=== PATIENT | female | born 1955 | race Caucasian/White ===

== ENCOUNTER → 2016-05-16 | Outpatient (CLI) | payer BC | END | disposition home or self-care (01) | LOC: C.PAPS 13:50 | PROVIDERS: ATTEND Obstetrics & Gynecology | DX: Z01.419 Encounter for gynecological examination (general) (routine) without abnormal findings (principal) ==

== ENCOUNTER → 2016-06-22 | Outpatient (CLI) | payer BC ==
--- NOTE | 2016-06-22 15:08 | MAMMOGRAPHY REPORT ---
BILATERAL DIGITAL SCREENING MAMMOGRAM WITH CAD: 06/22/2016 CLINICAL HISTORY: Routine screening. Patient has no complaints. TECHNIQUE: Current study was also evaluated with a Computer Aided Detection (CAD) system. Bilatera l CC and MLO views were obtained. COMPARISON: Comparison is made to exams dated: 06/15/2015 mammogram, 12/30/2014 ultrasound, 12/31/19 15 mammogram, 06/11/2014 mammogram, 04/09/2013 mammogram, and 02/07/2012 mammogram - [facility]. BREAST COMPOSITION: There are scattered areas of fibroglandular density in both breasts. FINDINGS: No suspicious masses, calcifications, or areas of architectural distortion are noted in e ither breast. There has been no significant interval change compared to prior exams. Focal asymmetr y in the right upper outer quadrant posteriorly is stable dating back to at least the 2006 exam. Sm all bilateral benign-appearing masses in bilateral upper outer quadrants are stable. IMPRESSION: ACR BI-RADS CATEGORY 2: BENIGN There is no mammographic evidence of malignancy. A 1 year screening mammogram is recommended. The p atient will receive written notification of the results. Approximately 10% of breast cancers are not detected with mammography. A negative mammographic repor t should not delay biopsy if a clinically suggestive mass is present. Toma Hudson M.D. /:06/22/2016 09:04:43 Door Technician: Coni SMITH)(Mk), [facility] letter sent: Normal 1/2 BI-RADS Code: ACR BI-RADS Category 2: Benign
== END | disposition home or self-care (01) ==
LOC: C.MAMM 08:34
PROVIDERS: ATTEND Obstetrics & Gynecology
DX: Z12.31 Encounter for screening mammogram for malignant neoplasm of breast (principal)

== ENCOUNTER → 2017-06-25 | Outpatient (CLI) | payer OTHER ==
--- NOTE | 2017-06-26 07:40 | MAMMOGRAPHY REPORT ---
BILATERAL DIGITAL SCREENING MAMMOGRAM TOMOSYNTHESIS WITH CAD: 06/25/2017 CLINICAL HISTORY: Routine screening. Patient has no complaints. TECHNIQUE: Breast tomosynthesis in addition to standard 2D mammography was performed. Current study was also evaluated with a Computer Aided Detection (CAD) system. COMPARISON: Comparison is made to exams dated: 06/22/2016 mammogram, 06/15/2015 mammogram, 12/30/2014 u ltrasound, 12/30/2014 mammogram, 06/11/2014 mammogram, and 04/09/2013 mammogram - [facility]. BREAST COMPOSITION: There are scattered areas of fibroglandular density in both breasts. FINDINGS: No suspicious mass, architectural distortion or cluster of microcalcifications is seen. T here is stable focal asymmetry in the upper outer middle to posterior right breast. IMPRESSION: ACR BI-RADS CATEGORY 1: NEGATIVE There is no mammographic evidence of malignancy. A 1 year screening mammogram is recommended. The pa tient will receive written notification of the results. Approximately 10% of breast cancers are not detected with mammography. A negative mammographic report should not delay biopsy if a clinically suggestive mass is present. Matilde Humphrey M.D. ay/:06/25/2017 16:12:10 Tobacco Stemmer Machine: Brandy CONTRERAS(R)(M), [facility] letter sent: Normal 1/2 BI-RADS Code: ACR BI-RADS Category 1: Negative
== END | disposition home or self-care (01) ==
LOC: C.MAMM 10:05
PROVIDERS: ATTEND Obstetrics & Gynecology
DX: Z12.31 Encounter for screening mammogram for malignant neoplasm of breast (principal)

== ENCOUNTER → 2017-06-28 | Outpatient (CLI) | payer OTHER | END | disposition home or self-care (01) | LOC: C.PAPS 12:43 | PROVIDERS: ATTEND Obstetrics & Gynecology | DX: Z01.419 Encounter for gynecological examination (general) (routine) without abnormal findings (principal) ==

== ENCOUNTER 2019-01-14 07:01 | Observation (INO) ==
[2019-01-14] MEDS ORDERED: MoRPHine SULFATE 4 MG/ML 1 ML CARP\\VIAL IV STA (07:19)
[2019-01-14] MEDS ORDERED: ONDANSETRON INJ 2 MG/ML 2 ML VIAL IV STA ×2 (07:19→10:09)
[2019-01-14] MEDS ORDERED: SODIUM CHLORIDE 0.9% 1000ML 1,000 ML IV ONE (07:19)
[2019-01-14 07:32] LABS: Basophils # (auto) 0.01 K/uL (0-0.2); Basophils % (auto) 0.1 %; Eosinophils # (auto) 0.04 K/uL (0-0.5); Eosinophils % (auto) 0.4 %; Hematocrit (blood only) 42.1 % (37-47); Hemoglobin 14.2 g/dL (12.0-16.0); Immature Granulocytes # (auto) 0.03 K/uL (0.00-0.02); Immature Granulocytes % (auto) 0.3 %; Lymphocytes # (auto) 1.24 K/uL (1.2-3.4); Lymphocytes % (auto) 12.6 %; Mean Corpuscular Hemoglobin 30.1 pg (25-34); Mean Corpuscular Hgb Conc 33.7 g/dL (32-36); Mean Corpuscular Volume 89.2 fL (80-100); Mean Platelet Volume 9.2 fL (7.4-10.4); Monocytes # (auto) 1.26 K/uL (0.11-0.59); Monocytes % (auto) 12.8 %; Neutrophils # (auto) 7.28 K/uL (1.4-6.5); Neutrophils % (auto) 73.8 %; Platelet Count 289 K/uL (130-400); RDW Coefficient of Variation 13.6 % (11.5-14.5); RDW Standard Deviation 44.4 fL (36.4-46.3); Red Blood Count 4.72 M/uL (4.2-5.4); White Blood Count 9.86 K/uL (4.8-10.8)
--- NOTE | 2019-01-14 07:42 | Emergency Department Note ---
History of Present Illness General Chief complaint: Abdominal Pain Stated complaint: STOMACH PAIN,VOMITING,RASH ON LEG Time Seen by Provider: 01/14/19 07:10 History of Present Illness Maximum Pain Intensity: 5 This 63-year-old female presents to the ER with chief complaint of upper abdomi nal pain which started on Sunday. She describes it as a dull achy and throbbing sensation. She admits to associated nausea and vomiting. Her last episode of vomiting was 630 last evening. The patient has had normal bowel movements. The patient denies any diarrhea. She denies any urinary symptoms of frequency, urgency, dysuria or hematuria. The patient denies any fever. The patient does admit to history of gallstones but still has her gallbladder. Patient also states that she has a rash on her lower legs. She states this started after she wore a pair of wool socks. Home Medications Home Medications Medication Instructions Recorded Confirmed Type ascorbic acid (vitamin C) 500 mg PO QAM 03/10/18 01/14/19 History cholecalciferol (vitamin D3) 2,000 unit PO QAM 03/10/18 01/14/19 History [Vitamin D3] cyanocobalamin (vitamin B-12) 1,000 mcg PO QAM 03/10/18 01/14/19 History [Vitamin B-12] methyl salicylate-menthol 1 patch TOPICAL Q12H PRN 03/10/18 01/14/19 History [Salonpas] multivitamin 1 tab PO QAM 03/10/18 01/14/19 History naproxen sodium [Aleve] 220 mg PO BID PRN 03/10/18 01/14/19 History calcium carbonate 600 mg(1,500 1 tab PO BID 09/30/18 01/14/19 History mg)-vitamin D3 800 unit chewable tablet anastrozole 1 mg tablet 1 mg PO HS 11/26/18 01/14/19 History Allergies Allergy/AdvReac Type Severity Reaction Status Date / Time adhesive tape AdvReac Severe Verified 01/14/19 08:22 nitrofurantoin AdvReac Intermediate Hallucinati Verified 01/14/19 08:22 ons Past Med/Surg History Medical History Breast cancer Diagnosed 07/04/18 - Right Breast- Invasive Ductal CA, ER/IA+, HER2- Disorder of intervertebral disc of lumbar spine Hiatal hernia Surgical History History of 2 sections (Acute) 1977 & 1981 History of arthroscopic knee surgery (Acute) 2013 - Left Knee History of neck surgery (Acute) 2014 - Left Neck Lymph Node Removal (Negative Finding) History of lumpectomy of right breast 08/02/18 & SLN Biopsy Family History Mother No problems noted. Father , Passed in 70's of colon CA No problems noted. Family/Other , Cousin - Passed in 40's of ovarian CA No problems noted. Brother Prostate cancer, Onset Age: 55 Prostatectomy - doing well now Son No problems noted. Son No problems noted. 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 Feels Safe at Home: Yes Smoking Status: Never smoker Hx Alcohol Use: No Hx Substance Use: No Childhood Exposure to Second-Hand Smoke: Yes caffeine: No during the past year weight has: remained stable Dental Care, Regularly: Yes Review of Systems A total of 10 systems reviewed and were otherwise negative Physical Exam Vital Signs Vital Signs - 24 hr 01/14/19 07:04 01/14/19 08:20 Temperature 36.6 C Temperature Source Oral Sepsis Recent Fever Within 48 Hours No Sepsis New/Unexplained Change in Mental Status No Sepsis Action Taken by Nursing No Action Required Pulse Rate 79 66 Pulse Rate [Apical] 66 Pulse Rhythm [Apical] Regular Pulse Strength [Apical] Normal Respiratory Rate 18 18 Respiratory Effort / Characteristics Non-Labored Spontaneous Respiratory Depth Normal Respiratory Pattern Regular Blood Pressure 142/74 H Blood Pressure [Left Arm] 142/57 H Blood Pressure Mean 96 Blood Pressure Mean [Left Arm] 85 Blood Pressure Position [Left Arm] Lying Pulse Oximetry 95 95 Oxygen Delivery Method Room Air Room Air GENERAL: 63-year-old white female appears in no acute distress. MENTAL Status: Alert and oriented x3. MOUTH: Mucosa is moist NECK: Supple, no lymphadenopathy noted. No carotid bruits noted. LUNGS: Clear auscultation without wheezes rales or rhonchi. CARDIAC: Regular rate and rhythm without murmur. Pulses is full and equal throughout. BACK: No CVA tenderness noted. ABDOMEN: Positive bowel sounds all 4 quadrants. Soft, tenderness to palpation in the epigastric and right upper quadrant otherwise nontender to palpation without organomegaly or masses. EXTREMITIES: No cyanosis or edema noted. Course Administered Medications Discontinued Medications Sodium Chloride (Nss 1000ml) 1,000 mls @ 999 mls/hr IV .Q1H1M ONE Stop: 01/14/19 08:19 Last Admin: 01/14/19 07:30 Dose: 999 mls/hr Documented by: [id number] Morphine Sulfate (Morphine Sulfate) 4 mg IV NOW STA Stop: 01/14/19 07:20 Last Admin: 01/14/19 07:30 Dose: 4 mg Documented by: [id number] Ondansetron HCl (Zofran) 4 mg IV NOW STA Stop: 01/14/19 07:20 Last Admin: 01/14/19 07:30 Dose: 4 mg Documented by: [id number] Medical Decision Making Differential Diagnosis Acute cholecystitis, cholelithiasis, acute gastritis, small bowel obstruction Medical Records Attestation: I reviewed the patient's medical records. Home Medications Current Medication List: was personally reviewed by me Laboratory Data Attestation: I reviewed the patient's lab results. Result diagrams: 01/14/19 07:24 01/14/19 07:24 Lab Results 01/14/19 01/14/19 01/14/19 Range/Units 07:24 07:24 07:35 WBC 9.86 (4.8-10.8) K/uL RBC 4.72 (4.2-5.4) M/uL Hgb 14.2 (12.0-16.0) g/dL Hct 42.1 (37-47) % MCV 89.2 (80-100) fL MCH 30.1 (25-34) pg MCHC 33.7 (32-36) g/dL RDW Std Deviation 44.4 (36.4-46.3) fL RDW Coeff of Alma Rosa 13.6 (11.5-14.5) % Plt Count 289 (130-400) K/uL MPV 9.2 (7.4-10.4) fL Immature Gran % (Auto) 0.3 % Neut % (Auto) 73.8 % Lymph % (Auto) 12.6 % Cascade % (Auto) 12.8 % Eos % (Auto) 0.4 % Baso % (Auto) 0.1 % Immature Gran # (Auto) 0.03 H (0.00-0.02) K/uL Neut # (Auto) 7.28 H (1.4-6.5) K/uL Lymph # (Auto) 1.24 (1.2-3.4) K/uL Cascade # (Auto) 1.26 H (0.11-0.59) K/uL Eos # (Auto) 0.04 (0-0.5) K/uL Baso # (Auto) 0.01 (0-0.2) K/uL Sodium 139 (136-145) mmol/L Potassium 3.7 (3.5-5.1) mmol/L Chloride 104 (98-107) mmol/L Carbon Dioxide 28 (21-32) mmol/L Anion Gap 7.0 (3-11) BUN 18 (7-18) mg/dl Creatinine 0.98 (0.6-1.2) mg/dl Est Cr Clr Drug Dosing 56.7 ml/min Est GFR ( Amer) 70.2 Est GFR (Non-Af Amer) 60.5 BUN/Creatinine Ratio 18.5 (10-20) Glucose 111 H (70-99) mg/dl Calcium 9.1 (8.5-10.1) mg/dl Total Bilirubin 0.5 (0.2-1) mg/dl AST 18 (15-37) U/L ALT 24 (12-78) U/L Alkaline Phosphatase 104 (45-117) U/L Total Protein 8.0 (6.4-8.2) gm/dl Albumin 3.6 (3.4-5.0) gm/dl Globulin 4.4 H (2.5-4.0) gm/dl Albumin/Globulin Ratio 0.8 L (0.9-2) Lipase 114 (73-393) U/L Urine Color Dark Yellow Urine Appearance Cloudy A (Clear) Urine pH 6.5 (4.5-7.5) Ur Specific Stephen 1.024 (1.000-1.030) Urine Protein 1+ H (Negative) Urine Glucose (UA) Negative (Negative) Urine Ketones Trace H (Negative) Urine Blood 3+ H (Negative) Urine Nitrite Negative (Negative) Urine Bilirubin Negative (Negative) Urine Urobilinogen Negative (Negative) Ur Leukocyte Esterase 2+ H (Negative) Urine WBC (Auto) >30 H (0-5) /hpf Urine RBC (Auto) >30 H (0-4) /hpf U Hyaline Cast (Auto) 1-5 (0-5) /lpf U Epithel Cells (Auto) 5-10 H (0-5) /lpf Urine Bacteria (Auto) 1+ H (Negative) Urine Mucus Present A (None Prsent) Imaging Data Attestation: I personally reviewed and interpreted this imaging study as follows: My Impression: Gallstones noted. Radiologist's Impression: US gallbladder CLINICAL HISTORY: Right upper quadrant pain/nausea/vomiting COMPARISON STUDY: Right upper quadrant ultrasound and CT of the abdomen and pelvis April 22, 2015. FINDINGS: Hepatic echogenicity is mildly increased. This suggests fatty infiltration. There is probable sparing within the gallbladder fossa. Note is made of multiple gallstones within the gallbladder. There is mild gallbladder wall thickening, measuring 3 mm in thickness. Sonographic Caro sign could not be assessed for given pain medication administration. Trace pericholecystic fluid is noted. Pancreas is largely obscured although the body appears unremarkable. There is no right hydronephrosis. There is no biliary ductal dilatation. The common bile duct measures 5 mm in caliber. IMPRESSION: 1. Cholelithiasis, mild gallbladder wall thickening and trace pericholecystic fluid. While not definitive, the findings raise the possibility of acute cholecystitis. A hepatobiliary scan could be obtained if indicated. 2. No biliary ductal dilatation. 3. Probable fatty infiltration of the liver. Electronically signed by: Corwin Ch M.D. 01/14/2019 8:02 AM Dictated: 01/14/19 0758 Transcribed: 01/14/19 0758 Blood Pressure Blood Pressure Findings: Elevated blood pressure Blood Pressure Disposition: elevated BP felt to be situational MDM Narrative The patient was evaluated. IV access was obtained. The patient was given 1 L normal saline wide open. She was given morphine 4 mg IV and Zofran 4 mg IV push. CBC and differential, renal profile, LFTs and lipase levels were ordered. Urinalysis was ordered. Ultrasound of the gallbladder was ordered interpreted by the radiologist and myself as above with gallbladder wall thickening, cholelithiasis and stephany-cholecystic fluid.. Also reviewed. White count was normal. LFTs were normal. Renal profile was normal. Urinalysis revealed positive blood, and positive leukocytes and positive bacteria. The patient was informed of all findings. The patient's case was discussed with Dr. Harris who independently evaluated the patient. Surgery was consulted. Surgery will do the admission. Impression & Plan Acute cholecystitis Discharge Plan Visit Data Chief Complaint: Abdominal Pain Stated Complaint: STOMACH PAIN,VOMITING,RASH ON LEG ED Provider: Brett Harris ED Midlevel Provider: Caitlin Mayer Discharge Problem: Acute cholecystitis Patient Disposition: Being Evaluated by Surgeon Condition: Good Forms Stand Alone Forms: Call Back Authorization, [facility], Important Visit Information Prescriptions Prescriptions: No Action Caltrate 600 plus D 600 mg (1,500 mg)-800 unit tablet,chewable 1 tab PO BID RF: 0 anastrozole [Arimidex] 1 mg tablet 1 mg PO HS RF: 0 multivitamin Tablet 1 tab PO QAM RF: 0 cyanocobalamin (vitamin B-12) [Vitamin B-12] 1,000 mcg Tablet 1,000 mcg PO QAM RF: 0 ascorbic acid (vitamin C) 500 mg Tablet 500 mg PO QAM RF: 0 naproxen sodium [Aleve] 220 mg Tablet 220 mg PO BID PRN (Reason: Pain) RF: 0 cholecalciferol (vitamin D3) [Vitamin D3] 2,000 unit Capsule 2,000 unit PO QAM RF: 0 Salonpas 10-3 % Adhesive Patch,Medicated 1 patch TOPICAL Q12H PRN (Reason: Pain) RF: 0 Referrals Referrals: Gaby Garcia DO [Primary Care Provider] -
[2019-01-14 07:45] LABS: Appearance Urine Cloudy (Clear); Bilirubin Urine Negative (Negative); Blood Urine 3+ (Negative); Color Urine Dark Yellow; Glucose Urine UA Negative (Negative); Ketones Urine Trace (Negative); Leukocyte Esterase Urine 2+ (Negative); Nitrite Urine Negative (Negative); Protein Urine 1+ (Negative); RBC Urine Automated >30 /hpf (0-4); Specific Gravity Urine 1.024 (1.000-1.030); Urobilinogen Urine Negative (Negative); WBC Urine Automated >30 /hpf (0-5); pH Urine 6.5 (4.5-7.5)
[2019-01-14 07:49] LABS: Albumin Level 3.6 gm/dl (3.4-5.0); BUN Creatinine Ratio 18.5 (10-20); Calcium 9.1 mg/dl (8.5-10.1); Creatinine Clr Calc Pharmacy 56.7 ml/min; Est GFR (African American) 70.2; Est GFR (Non-African American) 60.5; Potassium 3.7 mmol/L (3.5-5.1)
[2019-01-14 07:51] LABS: Albumin Globulin Ratio 0.8 (0.9-2); Bilirubin,Total 0.5 mg/dl (0.2-1); Globulin 4.4 gm/dl (2.5-4.0)
[2019-01-14 07:59] LABS: Mucus Urine Present (None Prsent)
[2019-01-14 08:00] LABS: Bacteria Urine Automated 1+ (Negative)
--- NOTE | 2019-01-14 08:03 | Ultrasound Report ---
US gallbladder CLINICAL HISTORY: Right upper quadrant pain/nausea/vomiting COMPARISON STUDY: Right upper quadrant ultrasound and CT of the abdomen and pelvis April 22, 2015. FINDINGS: Hepatic echogenicity is mildly increased. This suggests fatty infiltration. There is probab le sparing within the gallbladder fossa. Note is made of multiple gallstones within the gallbladder. There is mild gallbladder wall thickening, measuring 3 mm in thickness. Sonographic Caro sign could not be assessed for given pain medication administration. Trace pericholecystic fluid is noted. Panc reas is largely obscured although the body appears unremarkable. There is no right hydronephrosis. Th ere is no biliary ductal dilatation. The common bile duct measures 5 mm in caliber. IMPRESSION: 1. Cholelithiasis, mild gallbladder wall thickening and trace pericholecystic fluid. While not defini tive, the findings raise the possibility of acute cholecystitis. A hepatobiliary scan could be obtain ed if indicated. 2. No biliary ductal dilatation. 3. Probable fatty infiltration of the liver. Electronically signed by: Corwin Ch M.D. 01/14/2019 8:02 AM
--- NOTE | 2019-01-14 09:23 | Emergency Department Note ---
ED Visit Note Patient was seen by our PA/FLOATLIGHT LOADING SUPERVISOR. I was involved in the patient's care and did evaluate the patient myself. I was involved in the care throughout the ER stay. The patient appears to have early acute cholecystitis. Surgery has decided to do a cholecystectomy today. The patient is currently comfortable. .
--- NOTE | 2019-01-14 09:29 | History & Physical Report ---
Date of Service January 14, 2019 Assessment & Plan (1) Gallstones: This is a 63y F who presents to the [facility] ED on 01/14/19 with complaints of constant upper abdominal pain, associated with multiple bouts of vomiting since this past Sunday. Workup in the ED with a RUQ US revealed gallstones, with mild gb wall thickening and some pericholecystic fluid, raising the concern for acute cholecystitis. WBC and LFT's at this time are unremarkable. On examination patient is tender to palpation in the epigastric and RUQ regions. We will make patient NPO with IVF and start IV abx. We will book the patient for a laparoscopic cholecystectomy today. Dr. Nichols will also evaluate the patient and obtain surgical consent. History of Present Illness Primary Care Provider: Gaby Garcia DO This is a 63y F with a PMH of hiatal hernia and breast cancer s/p R lumpectomy in July who presents to the [facility] ED on 01/14/19 with complaints of abdominal pain and vomiting since Sunday. The patient reports she developed constant upper abdominal pain multiple bouts of vomiting this past sunday after eating chili. She continued with these symptoms on Sunday and she was only able to eat 1.5 pieces of toast and a small glass of water. She tried Pepto Bismol around 6:30pm to see if it would relieve her symptoms, but that also caused her to vomit. She denies any fevers, diarrhea, constipation, chest pain, shortness of breath, back pain, or recent sick contacts. Last BM was Sunday. She rates her pain a 6/10, and due to worsening pain and ongoing symptoms she decided to come to the ED for further evaluation. In the ED WBC 9.8, patient afebrile, and LFT's unremarkable. A RUQ US was obtained that revealed gallstones, mild gallbladder wall thickening, and trace fluid, no biliary ductal dilation. Surgery was consulted for further evaluation. She has no family history of gallbladder issues. Past abdominal surgeries include x2. Allergies Allergy/AdvReac Type Severity Reaction Status Date / Time adhesive tape AdvReac Severe Verified 01/14/19 08:22 nitrofurantoin AdvReac Intermediate Hallucinati Verified 01/14/19 08:22 ons Home Medications Home Medications Medication Instructions Recorded Confirmed Type ascorbic acid (vitamin C) 500 mg PO QAM 03/10/18 01/14/19 History cholecalciferol (vitamin D3) 2,000 unit PO QAM 03/10/18 01/14/19 History [Vitamin D3] cyanocobalamin (vitamin B-12) 1,000 mcg PO QAM 03/10/18 01/14/19 History [Vitamin B-12] methyl salicylate-menthol 1 patch TOPICAL Q12H PRN 03/10/18 01/14/19 History [Salonpas] multivitamin 1 tab PO QAM 03/10/18 01/14/19 History naproxen sodium [Aleve] 220 mg PO BID PRN 03/10/18 01/14/19 History calcium carbonate 600 mg(1,500 1 tab PO BID 09/30/18 01/14/19 History mg)-vitamin D3 800 unit chewable tablet anastrozole 1 mg tablet 1 mg PO HS 11/26/18 01/14/19 History Past Med/Surg History Medical History Breast cancer Diagnosed 07/04/18 - Right Breast- Invasive Ductal CA, ER/AK+, HER2- Disorder of intervertebral disc of lumbar spine Hiatal hernia Surgical History History of 2 sections (Acute) 1977 & 1981 History of arthroscopic knee surgery (Acute) 2013 - Left Knee History of neck surgery (Acute) 2014 - Left Neck Lymph Node Removal (Negative Finding) History of lumpectomy of right breast 08/02/18 & SLN Biopsy Family History Mother No problems noted. Father , Passed in 70's of colon CA No problems noted. Family/Other , Cousin - Passed in 40's of ovarian CA No problems noted. Brother Prostate cancer, Onset Age: 55 Prostatectomy - doing well now Son No problems noted. Son No problems noted. 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 Other Information That Helps Us Care for You: No Feels Safe at Home: Yes Safety Concerns: Feels Safe At This Time Smoking Status: Never smoker Do You Dip or Chew Tobacco: No ; Second Hand Exposure: No ; Tobacco Cessation Education Requested by Patient: No Hx Alcohol Use: No Hx Substance Use: No Childhood Exposure to Second-Hand Smoke: Yes caffeine: No during the past year weight has: remained stable Dental Care, Regularly: Yes Review of Systems Constitutional: + chills; no fever Respiratory: no shortness of breath Cardiovascular: no chest pain Gastrointestinal: + abdominal pain (upper abdominal pain), + bloating, + nausea and + vomiting; no change in bowel habits Physical Exam Physical Exam: awake/alert; visitor at bedside Constitutional: well developed, well nourished and cooperative Respiratory: normal respiratory effort Gastrointestinal (Abdomen): Inspection/Auscultation: + abdomen distended ( mild) Percussion/Palpation: + abdomen tender (in epigastric and RUQ) and abdomen soft Results & Data Vital Signs (Past 12 Hours) Vital Signs Temp Pulse Pulse Resp BP BP Pulse Ox 01/14/19 08:20 66 66 18 142/57 H 95 01/14/19 07:04 36.6 C 79 18 142/74 H 95 US gallbladder CLINICAL HISTORY: Right upper quadrant pain/nausea/vomiting COMPARISON STUDY: Right upper quadrant ultrasound and CT of the abdomen and pelvis April 22, 2015. FINDINGS: Hepatic echogenicity is mildly increased. This suggests fatty infiltration. There is probable sparing within the gallbladder fossa. Note is made of multiple gallstones within the gallbladder. There is mild gallbladder wall thickening, measuring 3 mm in thickness. Sonographic Caro sign could not be assessed for given pain medication administration. Trace pericholecystic fluid is noted. Pancreas is largely obscured although the body appears unremarkable. There is no right hydronephrosis. There is no biliary ductal dilatation. The common bile duct measures 5 mm in caliber. IMPRESSION: 1. Cholelithiasis, mild gallbladder wall thickening and trace pericholecystic fluid. While not definitive, the findings raise the possibility of acute cholecystitis. A hepatobiliary scan could be obtained if indicated. 2. No biliary ductal dilatation. 3. Probable fatty infiltration of the liver. Electronically signed by: Corwin Ch M.D. 01/14/2019 8:02 AM Code Status & VTE Plan VTE Prophylaxis Plan VTE Prophylaxis will be ordered: Yes Supervising Physician Co-Signing Physician Notes Patient seen and examined, labs and imaging reviewed, agree with above. 63-year-old female presented with right upper quadrant abdominal pain for several days. History of postprandial right upper quadrant abdominal pain after fatty meals in the past. Afebrile, vital signs stable. Her pain is improved since presenting to the emergency department this morning. She is tender to palpation in the right upper quadrant. Ultrasound shows gallstones with partial thickening of the gallbladder wall. Labs are overall unremarkable. Assessment: acute cholecystitis Plan for laparoscopic cholecystectomy with possible cholangiogram The risk of the procedure were discussed to include but not limited to bleeding, infection, retained stone, bile leak, damage to surrounding structures including common bile duct, conversion to open, need for future or more extensive surgery, and the risk of anesthesia Preop antibiotics PG Care Time/CCT Total # of Minutes Spent Total Time Spent with Patient: Total time spent is greater than 50% in coordination of care (as documented) at patient's floor/unit and/or counseling patient:
[2019-01-14] MEDS: cefOXitin 2,000 MG in DEXTROSE 5% 50 ML IV SCH ×3 (09:48→21:51)
[2019-01-14] MEDS ORDERED: MoRPHine SULFATE 4 MG/ML 1 ML CARP\\VIAL IV PRN (10:30)
[2019-01-14] MEDS ORDERED: ONDANSETRON INJ 2 MG/ML 2 ML VIAL IV PRN ×2 (10:30→15:53)
[2019-01-14] MEDS: SODIUM CHLORIDE 0.9% 1000ML 1,000 ML IV SCH ×2 (10:48→21:53)
[2019-01-14] MEDS: MoRPHine SULFATE 2 MG/ML CARP IV SCH ×7 (10:48→22:34)
[2019-01-14] MEDS ORDERED: PHENYLEPHRINE 100MCG/ML 5ML SYR IV PRN (15:53)
[2019-01-14] MEDS ORDERED: LABETALOL HCL IV 5 MG/ML 20ML IV PRN (15:53)
[2019-01-14] MEDS ORDERED: ePHEDrine sulfate 50 MG/ML AMP IV PRN (15:53)
[2019-01-14] MEDS ORDERED: fentaNYL citrate 100 MCG/2 ML VIAL IV PRN (15:53)
[2019-01-14] MEDS ORDERED: ATROPINE SULFATE 0.1 MG/ML 10ML SYR IV PRN (15:53)
[2019-01-14] MEDS ORDERED: MEPERIDINE HCL 25 MG/ML CARP IV PRN (15:53)
[2019-01-14] MEDS ORDERED: HYDROmorphone INJ 1 MG/ML SYRINGE IV PRN (15:53)
[2019-01-14] MEDS ORDERED: DEXAMETHASONE SOD INJ 4 MG/ML VIAL ONE ×2 (16:03→17:20)
[2019-01-14] MEDS ORDERED: ePHEDrine sulfate 50 MG/ML SYR ONE (16:03)
[2019-01-14] MEDS ORDERED: PHENYLEPHRINE 100MCG/ML 5ML SYR ONE (16:03)
[2019-01-14] MEDS ORDERED: ROCURONIUM BROMIDE 10 MG/ML 5 ML VIAL ONE (16:04)
[2019-01-14] MEDS ORDERED: LARYING-O-JET KIT (LTA) ONE (16:04)
[2019-01-14] MEDS ORDERED: KETOROLAC 30 MG/ML VIAL ONE (16:04)
[2019-01-14] MEDS ORDERED: GLYCOPYRROLATE 0.2 MG/ML VIAL ONE (16:04)
[2019-01-14] MEDS ORDERED: MIDAZOLAM HCL 1 MG/ML 2ML VIAL ONE (16:04)
[2019-01-14] MEDS ORDERED: fentaNYL citrate 100 MCG/2 ML VIAL ONE (16:04)
[2019-01-14] MEDS ORDERED: NEOSTIGMINE METHYLSULFATE 5 MG/5 ML SYR ONE (16:04)
[2019-01-14] MEDS ORDERED: PROPOFOL IV EMULSION 10 MG/ML 20 ML VIAL IV ONE (16:04)
[2019-01-14] MEDS ORDERED: LIDOCAINE HCL 2% 2 ML VIAL/AMP(20MG/ML) INFIL ONE ×2 (16:04→17:20)
[2019-01-14] MEDS ORDERED: ONDANSETRON INJ 2 MG/ML 2 ML VIAL ONE (16:04)
[2019-01-14] MEDS ORDERED: BUPIVACAINE 0.5 % 5 MG/1 ML MPF 30ML VIAL ONE (16:17)
--- NOTE | 2019-01-14 16:22 | Anesthesiology Consultation ---
Date of Service January 14, 2019 Assessment & Plan (1) Encounter for pre-operative examination: Chart Review Chart Review: Acceptable Risk for Surgery and Patient NOT seen in Pre Admission Testing Consults Requested none History Surgery Operation Date: 01/14/19 08:15 Proposed Procedures p Laparoscopic Cholecystectomy - Scout Nichols DO, FACS Height/Weight Height: 5 ft 1 in Weight: 85.2 kg Allergies Allergy/AdvReac Type Severity Reaction Status Date / Time adhesive tape AdvReac Severe Verified 01/14/19 08:22 nitrofurantoin AdvReac Intermediate Hallucinati Verified 01/14/19 08:22 ons Medications Home Medications Medication Instructions Recorded Confirmed Last Taken ascorbic acid (vitamin C) 500 mg PO QAM 03/10/18 01/14/19 01/12/19 cholecalciferol (vitamin D3) 2,000 unit PO QAM 03/10/18 01/14/19 01/12/19 [Vitamin D3] cyanocobalamin (vitamin B-12) 1,000 mcg PO QAM 03/10/18 01/14/19 01/12/19 [Vitamin B-12] methyl salicylate-menthol 1 patch TOPICAL Q12H PRN 03/10/18 01/14/19 12/31/18 [Salonpas] multivitamin 1 tab PO QAM 03/10/18 01/14/19 01/12/19 naproxen sodium [Aleve] 220 mg PO BID PRN 03/10/18 01/14/19 01/11/19 calcium carbonate 600 mg(1,500 1 tab PO BID 09/30/18 01/14/19 01/12/19 08:00 mg)-vitamin D3 800 unit chewable tablet anastrozole 1 mg tablet 1 mg PO HS 11/26/18 01/14/19 01/13/19 Active Medications Generic Name Dose Route Start Last Admin Trade Name Freq PRN Reason Stop Dose Admin Cefoxitin Sodium 2,000 mg/ 60 mls @ 100 mls/hr 01/14/19 09:30 01/14/19 15:08 Dextrose IV 01/24/19 09:29 100 mls/hr Q6H HEYDI Administration Sodium Chloride 1,000 mls @ 125 mls/hr 01/14/19 10:30 01/14/19 10:48 Nss 1000ml IV 02/13/19 10:29 125 mls/hr .Q8H HEYDI Administration Morphine Sulfate 2 mg 01/14/19 10:30 01/14/19 13:40 Morphine Sulfate IV 01/28/19 10:29 Not Given Q2H HEYDI Ondansetron HCl 4 mg 01/14/19 10:30 01/14/19 11:49 Zofran IV 02/13/19 10:29 4 mg Q4H PRN Administration Nausea And Vomiting NPO Date Last Intake of Fluids: 01/13/19 Time Last Intake of Fluids: 22:00 Date Last Intake of Solids: 01/13/19 Time Last Intake of Solids: 19:00 Past Medical History Medical History Obesity RBBB Breast cancer Diagnosed 07/04/18 - Right Breast- Invasive Ductal CA, ER/MS+, HER2-, radiation therapy October 2018 Disorder of intervertebral disc of lumbar spine Hiatal hernia Past Family History Family History Mother No problems noted. Father , Passed in 70's of colon CA No problems noted. Family/Other , Cousin - Passed in 40's of ovarian CA No problems noted. Brother Prostate cancer, Onset Age: 55 Prostatectomy - doing well now Son No problems noted. Son No problems noted. Past Surgical History Surgical History History of 2 sections (Acute) 1977 & 1981 History of arthroscopic knee surgery (Acute) 2013 - Left Knee History of neck surgery (Acute) 2014 - Left Neck Lymph Node Removal (Negative Finding) History of lumpectomy of right breast 08/02/18 & SLN Biopsy Social History Smoking Status: Never smoker Do You Dip or Chew Tobacco: No Hx Alcohol Use: No Hx Substance Use: No substance use type: does not use Physical Exam Vital Signs Last Vital Signs Temp 36.9 C 01/14/19 16:00 Pulse 66 01/14/19 16:00 Resp 18 01/14/19 16:00 BP 134/56 L 01/14/19 16:00 Pulse Ox 97 01/14/19 16:00 Testing Laboratory Results 01/14/19 07:24 01/14/19 07:24 Urine Color Dark Yellow 01/14/19 07:35 Urine Appearance Cloudy (Clear) A 01/14/19 07:35 Urine pH 6.5 (4.5-7.5) 01/14/19 07:35 Ur Specific [place] 1.024 (1.000-1.030) 01/14/19 07:35 Urine Protein 1+ (Negative) H 01/14/19 07:35 Urine Glucose (UA) Negative (Negative) 01/14/19 07:35 Urine Ketones Trace (Negative) H 01/14/19 07:35 Urine Nitrite Negative (Negative) 01/14/19 07:35 Ur Leukocyte Esterase 2+ (Negative) H 01/14/19 07:35 Urine WBC (Auto) >30 /hpf (0-5) H 01/14/19 07:35 Urine RBC (Auto) >30 /hpf (0-4) H 01/14/19 07:35 U Hyaline Cast (Auto) 1-5 /lpf (0-5) 01/14/19 07:35 U Epithel Cells (Auto) 5-10 /lpf (0-5) H 01/14/19 07:35 Urine Bacteria (Auto) 1+ (Negative) H 01/14/19 07:35 Electrocardiogram Date: 01/14/19 Findings: + RBBB (incomplete) SR with PSVCs, 70, possible anterior infarct
--- NOTE | 2019-01-14 17:22 | Operative Report ---
PG Post Operative Report Pre & Post Diagnosis Operation Date: 01/14/19 08:15 Pre-Op Diagnosis: Gallstones Post-Op Diagnosis: Gallstones, acute cholecystitis I identified the patient and participated in the time-out.: Yes Procedure Operation Date: 01/14/19 08:15 Actual Procedures p Laparoscopic Cholecystectomy(Not Applicable) - Scout Nichols DO, JUAN Surgeon Scout Nichols DO, JUAN [employer] Supervisor Willard Enciso Estimated Blood Loss 20 Findings Consistent with Post-Op Diagnosis Acutely inflamed gallbladder. Aspirated with needle. Large stone. Critical view of safety obtained, cystic duct and artery doubly clipped and divided. Good hemostasis. Specimens Gallbladder Anesthesia Type General Complications none Disposition Accompanied Patient To Recovery: No Disposition: Recovery Room Indications 53-year-old female presented with signs and symptoms of acute calculus cholecystitis. Plan for laparoscopic cholecystectomy with possible cholangiogram. The risks of the procedure were discussed, all questions were answered, and the patient agreed to proceed with surgery as planned. Description of Procedure The patient was properly identified, consented, and taken to the operating room where she was placed in the supine position. General endotracheal anesthesia was induced. SCDs and a safety belt were placed. Preoperative antibiotics were administered. The patient's abdomen was prepped and draped in the standard sterile fashion. A surgical timeout was performed and all parties were in agreement that this was the correct patient and procedure to be performed and we continued as planned. An incision was made superior and to the left of the umbilicus overlying the rectus muscle and the Veress needle was inserted. Saline drop test confirmed entry into the peritoneum. The abdomen was insufflated with carbon dioxide which the patient tolerated without incident. The abdomen was then entered using the Optiview technique and a 5 mm trocar. The laparoscope was inserted and no damage from initial trocar or Veress needle placement was noted, no gross abnormalities were noted within the 4 quadrants of the abdomen. An 11 mm port was placed in the subxiphoid position and two 5 mm ports were then placed in the right subcostal position. The patient was placed in reverse Trendelenburg position and rotated towards the left. The gallbladder was acutely inflamed. It was aspirated to assist with retraction. There appeared to be a large stone at the infundibulum. The dome of the gallbladder was retracted towards the left upper quadrant and the infundibulum was retracted toward the right lower quadrant revealing Calot's triangle. Peritoneal attachments were taken down with electrocautery and blunt dissection. The cystic duct and artery were circumferentially dissected. A window of safety was obtained showing the cystic duct entering the gallbladder with no aberrant structures noted. The cystic duct and artery were doubly clipped and divided. The gallbladder was then lifted off the gallbladder fossa with electrocautery. The gallbladder was placed in an Endo Catch bag and removed through the subxiphoid port site. The right upper quadrant was irrigated and hemostasis was found to be good. 5 mm trochars were removed under direct visualization and the abdomen was allowed to collapse. The subxiphoid port site fascia was closed with 0 Vicryl suture. The wound was irrigated, and the skin of all ports was closed with 4-0 Monocryl subcuticular sutures. Dermabond was placed over the wounds. The patient was extubated in the operating room and taken to the PACU where she recovered without apparent incident. All sponge, instrument and needle counts were correct at the conclusion of the procedure. The patient tolerated the procedure well. The physician's veterinary assistant technician was present and scrubbed for the entirety of the case and was essential in positioning the patient, prepping and draping, retraction and exposure, driving the laparoscope, removal of the gallbladder, closure the incisions, and placement of the dressings. I attest to the content of the Intraoperative Record and any orders documented therein. Any exceptions are noted below.
--- NOTE | 2019-01-14 18:09 | Anesthesiology Progress Note ---
Date of Service January 14, 2019 Anesthesia Post Procedure Vital Signs Vital Signs: Temp Pulse Pulse Pulse Resp BP BP 01/14/19 18:00 63 18 93/69 L 01/14/19 17:50 71 22 151/70 H 01/14/19 17:42 36.4 C L 83 21 167/79 H 01/14/19 16:00 36.9 C 66 18 134/56 L 01/14/19 14:59 36.9 C 69 16 127/73 01/14/19 10:35 36.6 C 89 18 138/77 01/14/19 10:31 0 L 01/14/19 10:09 36.6 C 70 18 137/64 01/14/19 10:06 70 18 137/64 01/14/19 10:01 74 21 01/14/19 10:00 70 17 137/64 01/14/19 09:45 70 20 01/14/19 09:31 66 18 01/14/19 09:30 69 68 14 133/65 133/65 01/14/19 09:15 68 15 01/14/19 09:01 65 16 01/14/19 09:00 83 71 21 134/70 134/70 01/14/19 08:45 65 16 01/14/19 08:31 67 22 01/14/19 08:30 69 26 H 135/69 01/14/19 08:25 67 15 01/14/19 08:20 68 66 23 142/57 H 142/57 H 01/14/19 07:04 36.6 C 79 18 142/74 H Pulse Ox 01/14/19 18:00 100 01/14/19 17:50 100 01/14/19 17:42 97 01/14/19 16:00 97 01/14/19 14:59 94 01/14/19 10:35 95 01/14/19 10:31 01/14/19 10:09 95 01/14/19 10:06 95 01/14/19 10:01 96 01/14/19 10:00 94 01/14/19 09:45 94 01/14/19 09:31 92 01/14/19 09:30 93 01/14/19 09:15 93 01/14/19 09:01 96 01/14/19 09:00 96 01/14/19 08:45 96 01/14/19 08:31 95 01/14/19 08:30 95 01/14/19 08:25 96 01/14/19 08:20 97 01/14/19 07:04 95 Pain Intensity Abdomen: Pain Intensity: 0 Transfer of Care Handoff Completed per policy Notes Mental Status: alert / awake / arousable Patient Amnestic to Procedure: Yes Nausea / Vomiting: adequately controlled Pain: adequately controlled Airway Patency, RR, SpO2: stable & adequate BP & HR: stable & adequate Hydration State: stable & adequate Anesthetic Complications: no major complications apparent and Pt Satisfied with anesthetic care
[2019-01-14] MEDS ORDERED: OXYCODONE/ACETAMINOPHEN 5mg/325mg TAB PO PRN ×2 (18:38)
[2019-01-14] MEDS ORDERED: ANASTROZOLE 1 MG TAB PO SCH (21:00)
[2019-01-15] MEDS: MoRPHine SULFATE 2 MG/ML CARP IV SCH ×8 (00:17→13:21)
[2019-01-15] MEDS: cefOXitin 2,000 MG in DEXTROSE 5% 50 ML IV SCH ×2 (02:57→09:54)
[2019-01-15] MEDS: SODIUM CHLORIDE 0.9% 1000ML 1,000 ML IV SCH ×2 (06:12→09:54)
--- NOTE | 2019-01-15 07:30 | Anesthesiology Progress Note ---
Date of Service January 15, 2019 Anesthesia Post Procedure Vital Signs Vital Signs: Temp Pulse Pulse Pulse Resp BP BP 01/15/19 07:15 37.4 C 73 16 106/70 01/15/19 03:06 37.0 C 69 16 147/71 H 01/14/19 23:07 37.0 C 72 16 128/74 01/14/19 21:39 37.2 C 80 16 106/61 01/14/19 20:40 37 C 72 16 130/72 01/14/19 20:31 36.9 C 63 16 114/70 01/14/19 19:36 37 C 69 18 135/77 01/14/19 19:05 36.8 C 69 16 144/77 H 01/14/19 18:35 36.5 C 65 16 150/78 H 01/14/19 18:20 36.3 C L 64 18 152/64 H 01/14/19 18:10 67 20 154/58 H 01/14/19 18:00 63 18 93/69 L 01/14/19 17:50 71 22 151/70 H 01/14/19 17:42 36.4 C L 83 21 167/79 H 01/14/19 16:00 36.9 C 66 18 134/56 L 01/14/19 14:59 36.9 C 69 16 127/73 01/14/19 10:35 36.6 C 89 18 138/77 01/14/19 10:31 0 L 01/14/19 10:09 36.6 C 70 18 137/64 01/14/19 10:06 70 18 137/64 01/14/19 10:01 74 21 01/14/19 10:00 70 17 137/64 01/14/19 09:45 70 20 01/14/19 09:31 66 18 01/14/19 09:30 69 68 14 133/65 133/65 01/14/19 09:15 68 15 01/14/19 09:01 65 16 01/14/19 09:00 83 71 21 134/70 134/70 01/14/19 08:45 65 16 01/14/19 08:31 67 22 01/14/19 08:30 69 26 H 135/69 01/14/19 08:25 67 15 01/14/19 08:20 68 66 23 142/57 H 142/57 H Pulse Ox 10/30/19 07:15 93 01/15/19 03:06 93 01/14/19 23:07 90 01/14/19 21:39 95 01/14/19 20:40 95 01/14/19 20:31 90 01/14/19 19:36 94 01/14/19 19:05 92 01/14/19 18:35 01/14/19 18:20 100 01/14/19 18:10 100 01/14/19 18:00 100 01/14/19 17:50 100 01/14/19 17:42 97 01/14/19 16:00 97 01/14/19 14:59 94 01/14/19 10:35 95 01/14/19 10:31 01/14/19 10:09 95 01/14/19 10:06 95 01/14/19 10:01 96 01/14/19 10:00 94 01/14/19 09:45 94 01/14/19 09:31 92 01/14/19 09:30 93 01/14/19 09:15 93 01/14/19 09:01 96 01/14/19 09:00 96 01/14/19 08:45 96 01/14/19 08:31 95 01/14/19 08:30 95 01/14/19 08:25 96 01/14/19 08:20 97 Pain Intensity Abdomen: Pain Intensity: 4 Notes Mental Status: alert / awake / arousable and participated in evaluation Patient Amnestic to Procedure: Yes Nausea / Vomiting: adequately controlled Pain: adequately controlled Airway Patency, RR, SpO2: stable & adequate BP & HR: stable & adequate Hydration State: stable & adequate Anesthetic Complications: no major complications apparent and Pt Satisfied with anesthetic care
--- NOTE | 2019-01-15 08:23 | Surgery Progress Note ---
Date of Service January 15, 2019 Assessment & Plan (1) Acute cholecystitis: POD 1 lap brisa advance diet home today Supervising Physician Co-Signing Physician Notes Patient seen and examined, agree with above. POD #1 laparoscopic cholecystectomy for acute cholecystitis. Overall doing well, some discomfort at the incision sites but feels better than yesterday. Tolerated diet. Abdomen soft, incisions healing well. Plan to discharge to home today, follow-up in 2 weeks in the clinic. Return precautions given, call with questions or concerns. Activity restrictions and wound care instructions reviewed. Subjective some soreness from subcostal incisions, no nausea Physical Exam Gastrointestinal (Abdomen): Inspection/Auscultation: abdomen not distended Percussion/Palpation: abdomen soft Results & Data Vital Signs (Past 12 Hours) Vital Signs Temp Pulse Resp BP Pulse Ox 01/15/19 07:15 37.4 C 73 16 106/70 93 01/15/19 03:06 37.0 C 69 16 147/71 H 93 01/14/19 23:07 37.0 C 72 16 128/74 90 01/14/19 21:39 37.2 C 80 16 106/61 95 01/14/19 20:40 37 C 72 16 130/72 95 01/14/19 20:31 36.9 C 63 16 114/70 90 PG Care Time/CCT Total # of Minutes Spent Total Time Spent with Patient: Total time spent is greater than 50% in coordination of care (as documented) at patient's floor/unit and/or counseling patient:
--- NOTE | 2019-01-15 08:43 | Discharge Summary ---
Date of Service January 15, 2019 Admission HPI Per Admitting Provider This is a 63y F with a PMH of hiatal hernia and breast cancer s/p R lumpectomy in July who presents to the [facility] ED on 01/14/19 with complaints of abdominal pain and vomiting since Sunday. The patient reports she developed constant upper abdominal pain multiple bouts of vomiting this past sunday after eating chili. She continued with these symptoms on Sunday and she was only able to eat 1.5 pieces of toast and a small glass of water. She tried Pepto Bismol around 6:30pm to see if it would relieve her symptoms, but that also caused her to vomit. She denies any fevers, diarrhea, constipation, chest pain, shortness of breath, back pain, or recent sick contacts. Last BM was Sunday. She rates her pain a 6/10, and due to worsening pain and ongoing symptoms she decided to come to the ED for further evaluation. In the ED WBC 9.8, patient afebrile, and LFT's unremarkable. A RUQ US was obtained that revealed gallstones, mild gallbladder wall thickening, and trace fluid, no biliary ductal dilation. Surgery was consulted for further evaluation. She has no family history of gallbladder issues. Past abdominal surgeries include x2. Principal Diagnosis Acute cholecystitis Discharge Exam Gastrointestinal (Abdomen) Inspection/Auscultation: + abdominal surgical incision (dry); abdomen not distended Percussion/Palpation: abdomen soft Discharge Data Allergies Allergy/AdvReac Type Severity Reaction Status Date / Time adhesive tape AdvReac Severe Verified 01/14/19 08:22 nitrofurantoin AdvReac Intermediate Hallucinati Verified 01/14/19 08:22 ons Consultations 01/14/19 09:15 ED Decision to Admit Stat Procedures Performed Operation Date: 01/14/19 08:15 Actual Procedures p Laparoscopic Cholecystectomy(Not Applicable) - Scout Nichols DO, FACS Ordered Studies 01/14/19 07:19 US gallbladder Stat Hospital Course (1) Acute cholecystitis: 63 y/o female presented to the ED with several days of RUQ pain. Ultrasound showed cholelithiasis and acute cholecystitis. She was admitted to the surgical floor and taken to the OR for laparoscopic cholecystectomy later in the day. The procedure was well tolerated and she was observed overnight. She was able to increase diet and activity in the morning. She was stable for discharge later in the day. Total Time Total Time Spent Total Time Spent (In Minutes): 10 Discharge Plan Discharge Items Patient Disposition: Home - Self-Care Reason For Visit: STOMACH PAIN,VOMITING,RASH ON LEG Discharge Diagnosis: laparoscopic cholecystectomy Condition on Discharge: Good Activity: Per Instructions section Lifting: No more than 10 pounds Bathing Comment: you may shower; no soaking in tubs Exercise/Sports: Wait until after follow-up appointment Driving/Machine Use: do not resume driving while taking narcotics for pain Non-emergency contact: Surgeon Call non-emergency contact if: you have any medication questions, your pain is not controlled, your pain is worsening, your pain is unusual for you, you have a fever, your temperature is above 101.5, your wound has increased redness, your wound has increased drainage and your wound pain has increased Follow-up/Referrals: Scout Nichols DO, FACS [Physician] - (Please call to schedule follow up in clinic within 1-2 weeks. You may call the office sooner if you have any questions/concerns.) Gaby Garcia DO [Primary Care Provider] - Diet: Regular Addtl Attending Provider Instructions: Pending Studies at Discharge: No Stand-Alone Forms: Call Back Authorization, My [facility], Smoking Cessation Medications and DC Order Prescriptions: New oxycodone-acetaminophen [Percocet] 5-325 mg tablet 1 - 2 tab PO Q4H PRN (Reason: pain, initial therapy, max 8 daily) Qty: 15 RF: 0 Continued Caltrate 600 plus D 600 mg (1,500 mg)-800 unit tablet,chewable 1 tab PO BID RF: 0 anastrozole [Arimidex] 1 mg tablet 1 mg PO HS RF: 0 multivitamin Tablet 1 tab PO QAM RF: 0 cyanocobalamin (vitamin B-12) [Vitamin B-12] 1,000 mcg Tablet 1,000 mcg PO QAM RF: 0 ascorbic acid (vitamin C) 500 mg Tablet 500 mg PO QAM RF: 0 naproxen sodium [Aleve] 220 mg Tablet 220 mg PO BID PRN (Reason: Pain) RF: 0 cholecalciferol (vitamin D3) [Vitamin D3] 2,000 unit Capsule 2,000 unit PO QAM RF: 0 Salonpas 10-3 % Adhesive Patch,Medicated 1 patch TOPICAL Q12H PRN (Reason: Pain) RF: 0 Discharge Orders: Discharge Order (Routine); Ordered 01/15/19 Ordered By: Willard Enciso Jr Admission Data Admit Date/Time: 01/14/19 09:25 Attending Provider: Scout Nichols Admit Provider: Scout Nichols Primary Care Provider: Gaby Garcia Other Providers: Scout Nichols
[2019-01-15 11:27] VITALS: BP 113/71; PULSE 69; TEMP 99; O2SAT 96
== END 2019-01-15 14:15 | disposition home or self-care (01) ==
LOC: 3W 07:01 → ED 07:01 → 3W 10:09